=== PATIENT | male | born 1990 | race African-American/Black ===

== ENCOUNTER 2021-02-14 09:52 | Emergency (ER) | payer MEDICAID, OTHER ==
[~2021-02-14] VITALS: Ht 167.6 cm; Wt 68.0 kg
[2021-02-14 10:25] VITALS: BP 124/81
== END 2021-02-14 11:01 | disposition home or self-care (01) ==
LOC: ER 09:52
DX: S16.1XXA Strain of muscle, fascia and tendon at neck level, initial encounter (principal); S63.501A Unspecified sprain of right wrist, initial encounter; L73.9 Follicular disorder, unspecified; W13.2XXA Fall from, out of or through roof, initial encounter; Y93.89 Activity, other specified; Y92.89 Other specified places as the place of occurrence of the external cause; Y99.8 Other external cause status
CPT/HCPCS: 70450; 72040; 73110